=== PATIENT | female | born 1985 | race African-American/Black ===

== ENCOUNTER 2018-07-16 00:11 | Inpatient (IN) | payer MEDICAID, OTHER ==
[2018-07-16] MEDS ORDERED: Ampicillin 2 GM in Sodium Chloride 0.9% 100 ML IV ONE (00:32)
[2018-07-16] MEDS ORDERED: Methylergonovine 0.2 MG/1 ML Amp IM PRN (00:32)
[2018-07-16] MEDS ORDERED: Sodium Chloride 0.9% 10 ML Syringe FLUSH PRN (00:32)
[2018-07-16] MEDS ORDERED: Sodium Chloride 0.9% 2.5 ML Syringe FLUSH PRN (00:32)
[2018-07-16] MEDS ORDERED: Lidocaine 1% 50 ML MDV INJECT PRN (00:32)
[2018-07-16] MEDS ORDERED: Ondansetron 4 MG/2 ML SDV IV PRN (00:32)
[2018-07-16] MEDS ORDERED: Terbutaline 1 MG/ML SDV SUBCUT PRN (00:32)
[2018-07-16] MEDS ORDERED: Tranexamic Acid 1,000 MG in Sodium Chloride 0.9% 100 ML IV PRN (00:32)
[2018-07-16] MEDS ORDERED: Carboprost Tromethamine 250 MCG/1 ML Amp IM PRN (00:32)
[2018-07-16] MEDS ORDERED: Misoprostol 25 MCG (1/4 of 100 MCG) Tab PO PRN (00:32)
[2018-07-16] MEDS ORDERED: Water For Irrigation,Sterile 1,000 ML Container IRR PRN (00:32)
[2018-07-16] MEDS ORDERED: Butorphanol 1 MG/ML SDV IVPUSH PRN (00:32)
[2018-07-16] MEDS ORDERED: Misoprostol 25 MCG (1/4 of 100 MCG) Tab VAG PRN ×2 (00:32)
[2018-07-16] MEDS ORDERED: Misoprostol 200 MCG Tab PO PRN (00:32)
[2018-07-16] MEDS ORDERED: Lactated Ringers 1,000 ML IV SCH (00:45)
[2018-07-16] MEDS ORDERED: Oxytocin/0.9 % Sodium Chloride 30 UNIT/500 ML BAG IV SCH ×2 (00:45)
[2018-07-16] MEDS: Nalbuphine 10 MG/1 ML Vial IVPUSH PRN ×3 (03:18→08:14)
[2018-07-16] MEDS ORDERED: Ampicillin 1 GM AdvVial IV ONE (06:05)
[2018-07-16] MEDS: Ampicillin 1 GM in Sodium Chloride 0.9% 50 ML IV SCH ×3 (06:09→14:26)
--- NOTE | 2018-07-16 08:54 | PCM.LDHP ---
L&D History of Present Illness - General Date of Service: 07/16/18 Admit Problem/Dx: Patient Status Order with Admit Dx/Problem 07/16/18 00:32 Patient Status [ADT] Routine Admission Diagnosis/Problem Admission Diagnosis/Problem 07/16/18 08:50 32yo EDC 07/13/2018 40 3/7week, A+, RI, GBS pos IOL post dates Source of Information: Patient History Limitations: Reports: No Limitations - History of Present Illness Pain Score: 8 Improves with: Reports: None Worsens with: Reports: None Associated Symptoms: Reports: N - Related Data Allergies/Adverse Reactions: Allergies Allergy/AdvReac Type Severity Reaction Status Date / Time No Known Allergies Allergy Verified 04/16/18 16:34 Home Medications: Home Meds PNV95/Ferrous Fumarate/FA [ Tablet] 1 PO DAILY 04/16/18 [History] Past Medical 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: - Infectious Disease History Infectious Disease History: Reports: Hepatitis B - Past Surgical History Musculoskeletal Surgical History: Reports: Other (See Below) Other Musculoskeletal Surgeries/Procedures:: tumors on thighs Social & Family History - Family History Family Medical History: Noncontributory - Tobacco Use Smoking Status *Q: Never Smoker Second Hand Smoke Exposure: No - Caffeine Use Caffeine Use: Reports: None - Recreational Drug Use Recreational Drug Use: No H&P Review of Systems - Review of Systems: Review Of Systems: See Below General: Reports: No Symptoms HEENT: Reports: No Symptoms Pulmonary: Reports: No Symptoms Cardiovascular: Reports: No Symptoms Gastrointestinal: Reports: No Symptoms Genitourinary: Reports: No Symptoms Musculoskeletal: Reports: No Symptoms Skin: Reports: No Symptoms Psychiatric: Reports: No Symptoms Neurological: Reports: No Symptoms Hematologic/Lymphatic: Reports: No Symptoms Immunologic: Reports: No Symptoms L&D Exam - Exam Exam: See Below - Vital Signs Weight: 91.626 kg - OB Specific Contraction Intensity: Strong Movement: Active Heart Tones: Present Heart Tones per Min: 130 Heart Rate (FHR) Variability: Moderate (6-25 bmp) Presentation: Vertex Estimated Weight: 3100 - Dwyer Score Dwyer Score Cervix Position: Anterior Dwyer Score Consistency: Soft Dwyer Score Effacement: >80% Dwyer Score Dilation: > 5 cm Dwyer Score Infant's Station: -1 ,0 Dwyer Score Total: 12 - Exam General: Alert, Oriented, Cooperative HEENT: Hearing Intact Lungs: Clear to Auscultation, Normal Respiratory Effort Cardiovascular: Regular Rate, Regular Rhythm, Normal S1, Normal S2 GI/Abdominal Exam: Soft, Non-Tender Rectal Exam: Deferred Genitourinary: Normal external exam, Normal bimanual exam, Cervical dilitation Back Exam: Normal Inspection, Full Range of Motion Extremities: Normal Inspection, Normal Range of Motion, Non-Tender, No Pedal Edema, Normal Capillary Refill Skin: Warm, Dry, Intact Neurological: Cranial Nerves Intact, Reflexes Equal Bilateral, Strength Equal Bilateral, Normal Speech, Normal Tone Psychiatric: Alert, Normal Affect, Normal Mood - Patient Data Lab Results Last 24 hrs: Laboratory Results - last 24 hr 07/16/18 07/16/18 Range/Units 00:55 00:55 WBC 5.10 (4.0-11.0) K/uL RBC 3.79 L (4.30-5.90) M/uL Hgb 9.3 L (12.0-16.0) g/dL Hct 29.3 L (36.0-46.0) % MCV 77.3 L (80.0-98.0) fL MCH 24.5 L (27.0-32.0) pg MCHC 31.7 (31.0-37.0) g/dL RDW Std Deviation 43.3 (28.0-62.0) fl RDW Coeff of Sri 15 (11.0-15.0) % Plt Count 167 (150-400) K/uL MPV 11.20 (7.40-12.00) fL Nucleated RBC % 0.0 /100WBC Nucleated RBCs # 0 K/uL Blood Type A POSITIVE Antibody Screen NEGATIVE Result Diagrams: 07/16/18 00:55 - Problem List (1) Supervision of normal IUP (intrauterine ) in multigravida SNOMED Code(s): 851987764, 783058388, 703644522 ICD Code: Z34.80 - ENCOUNTER FOR SUPRVSN OF NORMAL , UNSP TRIMESTER Status: Acute Priority: High Current Visit: Yes Qualifiers: Trimester: third trimester Qualified Code(s): Z34.83 - Encounter for supervision of other normal , third trimester Problem List Initiated/Reviewed/Updated: Yes Orders Last 24hrs: Active Orders 24 hr Category Date Time Status Patient Status [ADT] Routine ADT 07/16/18 00:32 Active Bedrest Bathroom Privileges [RC] ASDIRECTED Care 07/16/18 00:32 Active Communication Order [RC] ASDIRECTED Care 07/16/18 00:32 Active Communication Order [RC] ASDIRECTED Care 07/16/18 00:32 Active Notify Provider [RC] PRN Care 07/16/18 00:32 Active Notify Provider [RC] PRN Care 07/16/18 00:32 Active Notify Provider [RC] STAT Care 07/16/18 00:32 Active Oxygen Therapy [RC] ASDIRECTED Care 07/16/18 00:32 Active Up ad Chel [RC] ASDIRECTED Care 07/16/18 00:32 Active Vital Signs [RC] PER UNIT ROUTINE Care 07/16/18 00:32 Active Vital Signs [RC] PER UNIT ROUTINE Care 07/16/18 00:32 Active Ampicillin 1 gm Med 07/16/18 05:00 Active Sodium Chloride 0.9% [Normal Saline] 50 ml IV Q4H Butorphanol [Stadol] Med 07/16/18 00:32 Active 1 mg IVPUSH Q1H PRN Carboprost Tromethamine [Hemabate DS] Med 07/16/18 00:32 Active 250 mcg IM ASDIRECTED PRN Lactated Ringers [Ringers, Lactated] 1,000 ml Med 07/16/18 00:45 Active IV ASDIRECTED Lidocaine 1% [Xylocaine 1%] Med 07/16/18 00:32 Active 50 ml INJECT ONETIME PRN Methylergonovine [Methergine] Med 07/16/18 00:32 Active 0.2 mg IM ASDIRECTED PRN Ondansetron [Zofran] Med 07/16/18 00:32 Active 4 mg IV Q4H PRN Oxytocin/0.9 % Sodium Chloride [Oxytocin 30 Unit/500 ML Med 07/16/18 00:45 Active -NS] 30 unit in 500 ml IV TITRATE Oxytocin/0.9 % Sodium Chloride [Oxytocin 30 Unit/500 ML Med 07/16/18 00:45 Active -NS] 30 unit in 500 ml IV TITRATE Sodium Chloride 0.9% [Saline Flush] Med 07/16/18 00:32 Active 10 ml FLUSH ASDIRECTED PRN Sodium Chloride 0.9% [Saline Flush] Med 07/16/18 00:32 Active 2.5 ml FLUSH ASDIRECTED PRN Terbutaline [Brethine] Med 07/16/18 00:32 Active 0.25 mg SUBCUT ASDIRECTED PRN Tranexamic Acid [Cyklokapron] 1,000 mg Med 07/16/18 00:32 Active Sodium Chloride 0.9% [Normal Saline] 100 ml IV ONETIME Water For Irrigation,Sterile [Sterile Water for Med 07/16/18 00:32 Active Irrigation] 1,000 ml IRR ASDIRECTED PRN miSOPROStol [Cytotec] Med 07/16/18 00:32 Active 200 mcg PO ONETIME PRN miSOPROStol [Cytotec] Med 07/16/18 00:32 Active 25 mcg PO ONETIME PRN miSOPROStol [Cytotec] Med 07/16/18 00:32 Active 25 mcg VAG ONETIME PRN miSOPROStol [Cytotec] Med 07/16/18 00:32 Active 25 mcg VAG Q4H PRN Scalp Electrode [WOMSER] Per Unit Routine Oth 07/16/18 00:32 Ordered Medication Administration Instruction [OM.PC] Q3H Oth 07/16/18 00:45 Ordered Peripheral IV Insertion Adult [OM.PC] Routine Oth 07/16/18 00:32 Ordered Resuscitation Status Routine Resus Stat 07/16/18 00:32 Ordered Medication Orders Butorphanol Tartrate (Stadol) 1 mg IVPUSH Q1H PRN PRN Reason: Pain Carboprost Tromethamine (Hemabate Ds) 250 mcg IM ASDIRECTED PRN PRN Reason: Post Hemorrhage Lactated Ringer's (Ringers, Lactated) 1,000 mls @ 150 mls/hr IV ASDIRECTED KATY Last Admin: 07/16/18 02:00 Dose: 150 mls/hr Oxytocin/Sodium Chloride (Oxytocin 30 Unit/500 Ml-Ns) 30 unit in 500 mls @ 500 mls/hr IV TITRATE KATY Oxytocin/Sodium Chloride (Oxytocin 30 Unit/500 Ml-Ns) 30 unit in 500 mls @ 2 mls/hr IV TITRATE KATY; Protocol Last Admin: 07/16/18 02:21 Dose: 2 munits/min, 2 mls/hr Tranexamic Acid 1,000 mg/ (Sodium Chloride) 110 mls @ 660 mls/hr IV ONETIME PRN PRN Reason: Bleeding Ampicillin Sodium 1 gm/ Sodium (Chloride) 50 mls @ 100 mls/hr IV Q4H KATY Last Admin: 07/16/18 06:09 Dose: 100 mls/hr Lidocaine HCl (Xylocaine 1%) 50 ml INJECT ONETIME PRN PRN Reason: Laceration repair Methylergonovine Maleate (Methergine) 0.2 mg IM ASDIRECTED PRN PRN Reason: Post Hemorrhage Misoprostol (Cytotec) 200 mcg PO ONETIME PRN PRN Reason: Post Hemorrhage Misoprostol (Cytotec) 25 mcg VAG ONETIME PRN PRN Reason: Cervical Ripening Misoprostol (Cytotec) 25 mcg VAG Q4H PRN PRN Reason: Cervical Ripening Misoprostol (Cytotec) 25 mcg PO ONETIME PRN PRN Reason: Cervical Ripening Ondansetron HCl (Zofran) 4 mg IV Q4H PRN PRN Reason: Nausea/Vomiting Last Admin: 07/16/18 08:46 Dose: 4 mg Sodium Chloride (Saline Flush) 10 ml FLUSH ASDIRECTED PRN PRN Reason: Keep Vein Open Sodium Chloride (Saline Flush) 2.5 ml FLUSH ASDIRECTED PRN PRN Reason: Keep Vein Open Sterile Water (Sterile Water For Irrigation) 1,000 ml IRR ASDIRECTED PRN PRN Reason: delivery Terbutaline Sulfate (Brethine) 0.25 mg SUBCUT ASDIRECTED PRN PRN Reason: Tacysystole Assessment/Plan Comment:: IOL PD A:32yo EDC 07/13/2018 40 3/7week, A+, RI, GBS pos IOL post dates P: Admit, amp for GBS pos. Anticipate . Dr Perales at bs.
[2018-07-16] MEDS ORDERED: Acetaminophen 500 MG Tab PO PRN ×2 (09:47)
[2018-07-16] MEDS ORDERED: Docusate Sodium 100 MG Cap PO PRN (09:47)
[2018-07-16] MEDS ORDERED: Lanolin 100% Cream 7 GM Tube TOP PRN (09:47)
[2018-07-16] MEDS ORDERED: Bisacodyl 10 MG Supp RECTAL PRN (09:47)
[2018-07-16] MEDS ORDERED: oxyCODONE 5 MG Tab PO PRN (09:47)
[2018-07-16] MEDS ORDERED: Ibuprofen 400 MG Tab PO PRN (09:47)
[2018-07-16] MEDS ORDERED: Witch Hazel Medicated Pads 40/Jar TOP PRN (09:47)
[2018-07-16] MEDS ORDERED: Benzocaine/Menthol 20%-0.5% Spray 78 GM Cannister TOP PRN (09:47)
--- NOTE | 2018-07-16 11:47 | OR ---
SURGEON: Kendell Perales MD DATE OF PROCEDURE: Ms. Dunaway is para 3-0-0-3, this is her 4th child. She is followed in the clinic. She is seen primarily by me. She had an uncomplicated care. She had a positive GBS. She is 40 plus 2. She is admitted for elective induction. She responded to Cytotec. She progressed without any problem and at 8:00 this morning, she was complete vertex and she had an artificial rupture of the membrane by Nancy Marie with clear fluid. The patient prior to that at the beginning of the induction, she started on antibiotic according to the protocol. She was able to accomplish normal spontaneous vaginal delivery of a male fetus, cried immediately. score reported to be 8 and 9. The weight is not available. There was 1 nuchal cord. The placenta delivered spontaneous, complete, and intact without any problem. There was no tear. There was no laceration. There was no need for episiotomy. Estimated blood loss 250 to 300 mL and heart rate through the entire process of labor was category I. There is no complication in this labor and delivery. SHAHBAZ / THU /[id number]
[2018-07-16] MEDS: Ibuprofen 800 MG Tab PO PRN ×2 (16:21→22:35)
--- NOTE | 2018-07-17 08:18 | PCM.DCSUM1 ---
Discharge Summary - Hospital Course Free Text/Narrative:: Discharge home with . Follow up in 6 week for post . Diagnosis: Stroke: No - Discharge Data Discharge Date: 07/17/18 Discharge Disposition: Home, Self-Care 01 Condition: Good - Discharge Diagnosis/Problem(s) (1) Supervision of normal IUP (intrauterine ) in multigravida SNOMED Code(s): 104547461, 059236265, 905006182 ICD Code: Z34.80 - ENCOUNTER FOR SUPRVSN OF NORMAL , UNSP TRIMESTER Status: Acute Priority: High Current Visit: Yes Qualifiers: Trimester: third trimester Qualified Code(s): Z34.83 - Encounter for supervision of other normal , third trimester - Patient Instructions Diet: Usual Diet as Tolerated Activity: As Tolerated, No Strenuous Activities, Rest and Relax Today Driving: May Drive Today Showering/Bathing: May Shower Notify Provider of: Fever, Increased Pain, Nausea and/or Vomiting Other/Special Instructions: Discharge home with . Follow up in 6 week for post . - Discharge Plan *PRESCRIPTION DRUG MONITORING PROGRAM REVIEWED*: Not Applicable *COPY OF PRESCRIPTION DRUG MONITORING REPORT IN PATIENT GABRIELLE: Not Applicable Home Medications: Home Meds PNV95/Ferrous Fumarate/FA [ Tablet] 1 PO DAILY 04/16/18 [History] Referrals: [facility] [Outside] Kendell Perales MD [Physician] - 08/27/18 9:30 am - General Info Date of Service: 07/17/18 Admission Dx/Problem (Free Text: Patient Status Order with Admit Dx/Problem 07/16/18 00:32 Patient Status [ADT] Routine Admission Diagnosis/Problem Admission Diagnosis/Problem 07/16/18 08:50 32yo EDC 07/13/2018 40 3/7week, A+, RI, GBS pos IOL post dates Functional Status: Reports: Pain Controlled, Tolerating Diet, Ambulating, Urinating - Review of Systems General: Reports: No Symptoms HEENT: Reports: No Symptoms Pulmonary: Reports: No Symptoms Cardiovascular: Reports: No Symptoms Gastrointestinal: Reports: No Symptoms Genitourinary: Reports: No Symptoms Musculoskeletal: Reports: No Symptoms Skin: Reports: No Symptoms Neurological: Reports: No Symptoms Psychiatric: Reports: No Symptoms - Patient Data Vitals - Most Recent: Last Vital Signs Temp 36.2 C 07/17/18 05:00 Pulse 73 07/17/18 05:00 Resp 16 07/17/18 05:00 BP 101/59 L 07/17/18 05:00 Pulse Ox 100 07/17/18 05:00 Weight - Most Recent: 91.626 kg Lab Results - Last 24 hrs: Laboratory Results - last 24 hr 07/17/18 Range/Units 05:03 Hgb 7.7 L (12.0-16.0) g/dL Hct 24.9 L (36.0-46.0) % Med Orders - Current: Current Medications Acetaminophen (Tylenol Extra Strength) 500 mg PO Q4H PRN PRN Reason: Pain Last Admin: 07/17/18 03:05 Dose: 500 mg Acetaminophen (Tylenol Extra Strength) 1,000 mg PO Q4H PRN PRN Reason: Pain Benzocaine/Menthol (Dermoplast Pain Relief 20%-0.5% Velarde) 78 gm TOP ASDIRECTED PRN PRN Reason: Perineal Comfort Measure Bisacodyl (Dulcolax) 10 mg RECTAL ONETIME PRN PRN Reason: Constipation Butorphanol Tartrate (Stadol) 1 mg IVPUSH Q1H PRN PRN Reason: Pain Carboprost Tromethamine (Hemabate Ds) 250 mcg IM ASDIRECTED PRN PRN Reason: Post Hemorrhage Docusate Sodium (Colace) 100 mg PO BID PRN PRN Reason: Constipation Emollient Ointment (Lansinoh Hpa) 0 gm TOP ASDIRECTED PRN PRN Reason: Sore Nipples Lactated Ringer's (Ringers, Lactated) 1,000 mls @ 150 mls/hr IV ASDIRECTED KATY Last Admin: 07/16/18 02:00 Dose: 150 mls/hr Oxytocin/Sodium Chloride (Oxytocin 30 Unit/500 Ml-Ns) 30 unit in 500 mls @ 500 mls/hr IV TITRATE KATY Oxytocin/Sodium Chloride (Oxytocin 30 Unit/500 Ml-Ns) 30 unit in 500 mls @ 2 mls/hr IV TITRATE KATY; Protocol Last Admin: 07/16/18 02:21 Dose: 2 munits/min, 2 mls/hr Tranexamic Acid 1,000 mg/ (Sodium Chloride) 110 mls @ 660 mls/hr IV ONETIME PRN PRN Reason: Bleeding Ibuprofen (Motrin) 400 mg PO Q4H PRN PRN Reason: Pain Ibuprofen (Motrin) 800 mg PO Q6H PRN PRN Reason: Pain Last Admin: 07/16/18 22:35 Dose: 800 mg Lidocaine HCl (Xylocaine 1%) 50 ml INJECT ONETIME PRN PRN Reason: Laceration repair Methylergonovine Maleate (Methergine) 0.2 mg IM ASDIRECTED PRN PRN Reason: Post Hemorrhage Misoprostol (Cytotec) 200 mcg PO ONETIME PRN PRN Reason: Post Hemorrhage Misoprostol (Cytotec) 25 mcg VAG ONETIME PRN PRN Reason: Cervical Ripening Misoprostol (Cytotec) 25 mcg VAG Q4H PRN PRN Reason: Cervical Ripening Misoprostol (Cytotec) 25 mcg PO ONETIME PRN PRN Reason: Cervical Ripening Ondansetron HCl (Zofran) 4 mg IV Q4H PRN PRN Reason: Nausea/Vomiting Last Admin: 07/16/18 08:46 Dose: 4 mg Oxycodone HCl (Oxycodone) 5 mg PO Q2H PRN PRN Reason: Pain Last Admin: 07/17/18 03:04 Dose: 5 mg Sodium Chloride (Saline Flush) 10 ml FLUSH ASDIRECTED PRN PRN Reason: Keep Vein Open Sodium Chloride (Saline Flush) 2.5 ml FLUSH ASDIRECTED PRN PRN Reason: Keep Vein Open Sterile Water (Sterile Water For Irrigation) 1,000 ml IRR ASDIRECTED PRN PRN Reason: delivery Terbutaline Sulfate (Brethine) 0.25 mg SUBCUT ASDIRECTED PRN PRN Reason: Tacysystole Witch Patricia (Tucks) 1 pad TOP ASDIRECTED PRN PRN Reason: comfort care Discontinued Medications Ampicillin Sodium (Ampicillin) Confirm Administered Dose 1 gm IV .STK-MED ONE Stop: 07/16/18 06:06 Last Admin: 07/16/18 07:07 Dose: Not Given Ampicillin Sodium 2 gm/ Sodium (Chloride) 100 mls @ 200 mls/hr IV ONETIME ONE Stop: 07/16/18 01:01 Last Infusion: 07/16/18 02:30 Dose: Infused Ampicillin Sodium 1 gm/ Sodium (Chloride) 50 mls @ 100 mls/hr IV Q4H COUNT INCLUDES THE [facility] Last Admin: 07/16/18 14:26 Dose: Not Given Nalbuphine HCl (Nubain) 10 mg IVPUSH Q1H PRN PRN Reason: Pain (severe 7-10) Last Admin: 07/16/18 08:14 Dose: 10 mg - Exam General: Reports: Alert, Oriented, Cooperative, No Acute Distress Lungs: Reports: Clear to Auscultation, Normal Respiratory Effort Cardiovascular: Reports: Regular Rate, Regular Rhythm, No Murmurs GI/Abdominal Exam: Normal Bowel Sounds, Soft, Non-Tender, No Organomegaly, No Distention, No Abnormal Bruit, No Mass, Pelvis Stable (Female) Exam: Vaginal Bleeding Rectal (Female) Exam: Deferred Back Exam: Reports: Normal Inspection, Full Range of Motion Extremities: Normal Inspection, Normal Range of Motion, Non-Tender, No Pedal Edema, Normal Capillary Refill Skin: Reports: Warm, Dry, Intact Wound/Incisions: Reports: Healing Well Neurological: Reports: No New Focal Deficit, Normal Speech, Normal Tone, Strength Equal Bilateral Psy/Mental Status: Reports: Alert, Normal Affect, Normal Mood
[2018-07-17] MEDS: Ibuprofen 800 MG Tab PO PRN (10:19)
== END 2018-07-17 13:00 | disposition home or self-care (01) | DRG 775 ==
LOC: MW.OBCHECK 00:11 → MW.OB 00:13 → MW.OBCHECK 00:32 → OBSVTOIN 09:10 → MW.OB 13:34
PROVIDERS: ADMIT Obstetrics & Gynecology; ATTEND Obstetrics & Gynecology
PROC: 10E0XZZ Delivery of Products of Conception, External Approach (ICD-10-PCS; principal; 2018-07-16)
PROC: 3E0P7VZ Introduction of Hormone into Female Reproductive, Via Natural or Artificial Opening (ICD-10-PCS; 2018-07-16)
PROC: 10907ZC Drainage of Amniotic Fluid, Therapeutic from Products of Conception, Via Natural or Artificial Opening (ICD-10-PCS; 2018-07-16)
DX: O48.0 Post-term pregnancy (principal); O99.824 Streptococcus B carrier state complicating childbirth; Z3A.40 40 weeks gestation of pregnancy; Z37.0 Single live birth
CPT/HCPCS: 36415; 59025; 59409; 85014; 85018; 85027; 86850; 86900; 86901; 90686; A9270-GY; G0008; J0290; J2300; J2405; J2590; J7030; J7050; J7120

== ENCOUNTER 2018-07-29 10:48 | Emergency (ER) | payer OTHER ==
[2018-07-29] MEDS ORDERED: Ketorolac 60 MG/2 ML SDV IM ONE (11:22)
--- NOTE | 2018-07-29 11:29 | EDM.PDOC ---
<Mikaela Sage - Last Filed: 07/29/18 11:37> ED HPI GENERAL MEDICAL PROBLEM - General Chief Complaint: Neck Problem Stated Complaint: NECK PAIN Time Seen by Provider: 07/29/18 10:52 - History of Present Illness INITIAL COMMENTS - FREE TEXT/NARRATIVE: HISTORY AND PHYSICAL: History of present illness: The patient is a 32-year-old female who presents with one-week history of right sided neck and shoulder pain. She denies any trauma or injury. She reports tight muscles, painful range of motion of her neck especially with rotation. She rates the pain 9 out of 10. She has been taking ibuprofen and Tylenol at home with little improvement. She denies any weakness, numbness/tingling in the extremities. Patient is currently . [] Review of systems: As per history of present illness and below otherwise all systems reviewed and negative. Past medical history: As per history of present illness and as reviewed below otherwise noncontributory. Surgical history: As per history of present illness and as reviewed below otherwise noncontributory. Social history: No reported history of drug or alcohol abuse. Family history: As per history of present illness and as reviewed below otherwise noncontributory. Physical exam: HEENT: Atraumatic, normocephalic, pupils reactive, negative for conjunctival pallor or scleral icterus, mucous membranes moist, throat clear, neck supple, nontender, trachea midline. Lungs: Clear to auscultation, breath sounds equal bilaterally, chest nontender. Heart: S1S2, regular, negative for clicks, rubs, or JVD. Abdomen: Soft, nondistended, nontender. Negative for masses or hepatosplenomegaly. Negative for costovertebral tenderness. Pelvis: Stable nontender. Genitourinary: Deferred. Rectal: Deferred. Extremities: Atraumatic, negative for cords or calf pain. Neurovascular unremarkable. MSK- right cervical paraspinal muscles tender to palpation, decreased ROM with rotation due to pain, flexion/extension normal, strength 5/5 in all extremities. Neuro: Awake, alert, oriented. Cranial nerves II through XII unremarkable. Cerebellum unremarkable. Motor and sensory unremarkable throughout. Exam nonfocal. Diagnostics: [none] Therapeutics: [Toradol] Impression: [muscle spasms of neck] Plan: [Discharge home with self care. Patient can continue to use tylenol/ibuprofen for pain. At home care includes ice, heat, over the counter lidocaine patches. No muscle relaxer was prescribed due to status. ] Definitive disposition and diagnosis as appropriate pending reevaluation and review of above. 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: - Infectious Disease History Infectious Disease History: Reports: Hepatitis B - Past Surgical History Musculoskeletal Surgical History: Reports: Other (See Below) Other Musculoskeletal Surgeries/Procedures:: tumors on thighs Social & Family History - Family History Family Medical History: Noncontributory - Tobacco Use Smoking Status *Q: Never Smoker Second Hand Smoke Exposure: No - Caffeine Use Caffeine Use: Reports: Coffee - Recreational Drug Use Recreational Drug Use: No ED ROS GENERAL - Review of Systems Review Of Systems: See Below (see dictation) ED EXAM, GENERAL - Physical Exam Exam: See Below (see dictation) Course - Vital Signs Last Recorded V/S: Last Vital Signs Temp 96.8 F 07/29/18 11:08 Pulse 67 07/29/18 11:52 Resp 16 07/29/18 11:52 BP 123/68 07/29/18 11:52 Pulse Ox 96 07/29/18 11:52 - Orders/Labs/Meds Meds: Medications Discontinued Medications Generic Name Dose Route Start Last Admin Trade Name Freq PRN Reason Stop Dose Admin Ketorolac Tromethamine 60 mg 07/29/18 11:22 07/29/18 11:27 Toradol IM 07/29/18 11:23 60 mg ONETIME ONE Administration Departure - Departure Time of Disposition: 11:38 Disposition: Home, Self-Care 01 Condition: Good Clinical Impression: Muscle spasms of neck - Discharge Information *PRESCRIPTION DRUG MONITORING PROGRAM REVIEWED*: No *COPY OF PRESCRIPTION DRUG MONITORING REPORT IN PATIENT GABRIELLE: No Instructions: Muscle Cramps and Spasms, [id number] Referrals: PCP,None [Primary Care Provider] - Forms: ED Department Discharge Additional Instructions: My general discharge The following information is given to patients seen in the emergency department who are being discharged to home. This information is to outline your options for follow-up care. We provide all patients seen in our emergency department with a follow-up referral. The need for follow-up, as well as the timing and circumstances, are variable depending upon the specifics of your emergency department visit. If you don't have a primary care physician on staff, we will provide you with a referral. We always advise you to contact your personal physician following an emergency department visit to inform them of the circumstance of the visit and for follow-up with them and/or the need for any referrals to a consulting specialist. The emergency department will also refer you to a specialist when appropriate. This referral assures that you have the opportunity for follow-up care with a specialist. All of these measure are taken in an effort to provide you with optimal care, which includes your follow-up. Under all circumstances we always encourage you to contact your private physician who remains a resource for coordinating your care. When calling for follow-up care, please make the office aware that this follow-up is from your recent emergency room visit. If for any reason you are refused follow-up, please contact the [facility] Emergency Department at and asked to speak to the emergency department charge nurse. My Primary Care [facility] [address] [place] [address] May continue to use Tylenol/ibuprofen for pain relief. May also try heat, ice, over the counter lidocaine patches. Return or seek medical care as discussed. <Renetta Castañeda - Last Filed: 07/29/18 13:08> ED HPI GENERAL MEDICAL PROBLEM - History of Present Illness INITIAL COMMENTS - FREE TEXT/NARRATIVE: I reviewed this patient with Dr. Sage and agree with workup and treatment plan.
== END 2018-07-29 11:52 | disposition home or self-care (01) ==
LOC: MW.ED 10:48
DX: M62.838 Other muscle spasm (principal); R51 Headache; M25.511 Pain in right shoulder
CPT/HCPCS: 96372; 99283; J1885